=== PATIENT | female | born 1990 | race Caucasian/White ===

== ENCOUNTER 2021-09-17 02:48 | Emergency (ER) | payer OTHER ==
[2021-09-17 03:02] VITALS: BP 111/62
--- NOTE | 2021-09-17 03:14 | ED Physician Documentation ---
PD HPI LOWER EXT INJURY - Stated complaint Stated Complaint: R ANKLE PX - Chief complaint Chief Complaint: Ext Problem - History obtained from History obtained from: Patient - Additional information Additional information: The patient comes to the emergency department with chief complaint of right foot pain. She states that around 1400 yesterday, she was walking and rolled her ankle. Initially, she did not feel any pain, but this morning, she awoke from sleep and noticed that her foot hurt. Patient states that she attempted to get up to get some ibuprofen, and when she stepped down on the foot, she "screamed in pain". Patient denies any pain now while sitting in the bed. She did take ibuprofen at home. She states that if she bears weight, she feels sharp pain in her dorsal lateral right foot. Patient has not noticed any edema or contusion. No numbness or tingling. No prior history of injury to the right ankle or foot. She states she has a little pain shooting up into her lower leg, but the focus is in the foot. No other complaints at this time. Review of Systems Ten Systems: 10 systems reviewed and negative Constitutional: reports: Reviewed and negative Eyes: reports: Reviewed and negative Ears: reports: Reviewed and negative Nose: reports: Reviewed and negative Throat: reports: Reviewed and negative Cardiac: reports: Reviewed and negative Respiratory: reports: Reviewed and negative GI: reports: Reviewed and negative : reports: Reviewed and negative Skin: reports: Reviewed and negative Musculoskeletal: reports: Extremity pain, Pain with weight bearing Neurologic: reports: Reviewed and negative Psychiatric: reports: Reviewed and negative Endocrine: reports: Reviewed and negative Immunocompromised: reports: Reviewed and negative PD PAST MEDICAL HISTORY - Present Medications Home Medications: Ambulatory Orders Medication Instructions Recorded Confirmed No Known Home Medications 09/17/21 09/17/21 - Allergies Allergies/Adverse Reactions: Allergies Allergy/AdvReac Type Severity Reaction Status Date / Time No Known Drug Allergies Allergy Verified 09/17/21 03:02 PD ED PE NORMAL - Vitals Vital signs reviewed: Yes - General General: Alert and oriented X 3, No acute distress, Well developed/nourished - HEENT HEENT: Atraumatic, PERRL, EOMI, Moist mucous membranes - Cardiac Cardiac: Strong equal pulses - Respiratory Respiratory: No respiratory distress - Derm Derm: Normal color, Warm and dry, No rash, Other (No contusion) - Extremities Extremities: No deformity, No edema, No calf tenderness / cord, Other (Point tenderness to palpation over the lateral mid dorsum of patient's right foot. No deformity. No edema. Range of motion moderately limited secondary to pain.) - Neuro Neuro: Alert and oriented X 3 - Psych Psych: Normal mood, Normal affect Results - Vitals Vitals: Vital Signs - 24 hr 09/17/21 02:57 Temperature 36.4 C L Heart Rate 87 Respiratory 18 Rate Blood Pressure 111/62 O2 Saturation 98 Oxygen O2 Source Room air PD MEDICAL DECISION MAKING - ED course Complexity details: reviewed results, re-evaluated patient, considered differential, d/w patient ED course: The patient was worked up with X-ray series of the right foot, which was u nremarkable. We have discussed symptomatic management, and the patient has been given a pair of crutches. We have discussed the usual indications for return. Departure - Departure Disposition: 01 Home, Self Care Clinical Impression: Sprain of foot, right Qualifiers: Encounter type: initial encounter Qualified Code(s): S93.601A - Unspecified sprain of right foot, initial encounter Condition: Stable Instructions: ED Sprain Foot Comments: Your foot x-rays look good. There is no swelling or bruising, and it is not quite clear why you are having the degree of pain that you felt at home. At this point in time, the best thing to do is to keep weight off of the foot. You can use the crutches to help yourself get around until you are able to bear weight again. You may take ibuprofen and/or Tylenol and use ice packs if needed. Given the lack of findings on your foot, it is likely that your symptoms will resolve in the next few days. Please follow-up with your primary care physician for further concerns. Discharge Date/Time: 09/17/21 03:55
--- NOTE | 2021-09-17 08:13 | XRAY Report ---
PROCEDURE: Foot 3 View RT INDICATIONS: foot injury, "screaming in pain" TECHNIQUE: 3 views of the foot were acquired. COMPARISON: None FINDINGS: Bones: No fractures or dislocations. No suspicious bony lesions. Soft tissues: No tibiotalar joint effusion. Achilles tendon appears normal. IMPRESSION: No acute fracture or other plain film abnormality can be seen. Please correlate with focal tenderness. If there is point tenderness (or other clinical concern for a fracture not seen on these plain films) then please consider a dedicated CT study or a short term fo llow up plain film series for further evaluation. Note: No significant discrepancy from the preliminary report. Reviewed by: Mario Magdaleno MD on 09/17/2021 7:12 AM [facility] Approved by: Mario Magdaleno MD on 09/17/2021 7:12 AM [facility] Station ID: [id number]
== END 2021-09-17 03:55 | disposition home or self-care (01) ==
LOC: ED 02:48
DX: S93.601A Unspecified sprain of right foot, initial encounter (principal); X50.1XXA Overexertion from prolonged static or awkward postures, initial encounter; Y93.01 Activity, walking, marching and hiking
CPT/HCPCS: 99282; 99283